=== PATIENT | female | born 1995 | race Caucasian/White ===

== ENCOUNTER 2018-06-30 13:04 | Emergency (ER) | payer SELFPAY ==
[~2018-06-30] VITALS: Ht 152.4 cm; Wt 49.0 kg
[2018-06-30 13:19] VITALS: BP 118/82
== END 2018-06-30 20:20 | disposition left against medical advice (07) ==
LOC: ER 13:04
DX: Z53.21 Procedure and treatment not carried out due to patient leaving prior to being seen by health care provider (principal)

== ENCOUNTER 2018-09-02 01:22 | Emergency (ER) | payer SELFPAY ==
[~2018-09-02] VITALS: Ht 154.9 cm; Wt 50.9 kg
[2018-09-02] MEDS ORDERED: SODIUM CHLORIDE 0.9% 1,000 ML IV ONE (01:44)
[2018-09-02] MEDS ORDERED: KETOROLAC 30MG/ML VIAL IV STA (01:44)
[2018-09-02] MEDS ORDERED: ONDANSETRON HCL 4MG/2ML INJ IV STA (01:44)
[2018-09-02] MEDS ORDERED: CLINDAMYCIN 600 MG in DEXTROSE 5% WATER 50 ML IV ONE (01:45)
[2018-09-02] MEDS ORDERED: DEXAMETHASONE 10 MG/ML VIAL IV ONE (01:45)
[2018-09-02] MEDS ORDERED: CLINDAMYCIN 600 MG in SODIUM CHLORIDE 0.9% 50 ML IV NR (02:15)
[2018-09-02 02:16] LABS: HEMATOCRIT. 37.2 % (36.0-48.0); HEMOGLOBIN. 12.8 g/dL (12.0-16.0); MEAN CORPUSCULAR HEMOGLOBIN 30.6 pg (28.0-32.0); MEAN PLATELET VOLUME 6.9 fl (7.4-10.4); PLATELET 356 x1000/uL (130-400); RED BLOOD CELL COUNT 4.18 mill/uL (4.2-5.4); RED CELL DISTRIBUTION WIDTH 14.8 % (11.6-14.6)
[2018-09-02 02:22] LABS: CHLORIDE 107 mEq/L (98-107)
[2018-09-02 02:23] LABS: HCG SCREEN NEGATIVE
[2018-09-02] MEDS ORDERED: LIDOCAINE HCL/PF 1% 10 MG/ML 5ML VIAL IJ ONE (03:00)
[2018-09-02] MEDS ORDERED: TETRACAINE/BENZOCAINE/BUTAMBEN 20 GM SPRAY MM NR (03:00)
[2018-09-02 03:41] VITALS: BP 103/78
[2018-09-02 05:07] LABS: PLATELET ESTIMATE NORMAL
== END 2018-09-02 03:44 | disposition home or self-care (01) ==
LOC: ER 01:22
DX: J36 Peritonsillar abscess (principal); D72.829 Elevated white blood cell count, unspecified
CPT/HCPCS: 36415; 42700; 80053; 84703; 85025; 96365; 96375; 99283; J1100; J1885; J2405; J3490; J7030; J7060

== ENCOUNTER 2019-05-06 12:10 | Emergency (ER) | payer SELFPAY | END 2019-05-06 13:59 | disposition left against medical advice (07) | LOC: ER 12:10 | DX: Z53.21 Procedure and treatment not carried out due to patient leaving prior to being seen by health care provider (principal) ==

== ENCOUNTER 2019-05-06 21:23 | Emergency (ER) | payer SELFPAY ==
[~2019-05-06] VITALS: Ht 152.4 cm; Wt 54.0 kg
[2019-05-06] MEDS ORDERED: CLINDAMYCIN 600 MG in DEXTROSE 5% WATER 50 ML IV ONE (22:30)
[2019-05-06] MEDS ORDERED: HYDROCODONE/ACETAMINOPHEN 5/325MG TABLET PO ONE (22:30)
[2019-05-06] MEDS ORDERED: DIPHENHYDRAMINE 50MG/ML VIAL IV ONE (22:45)
[2019-05-06 23:00] LABS: BASOPHILS % 0.4 % (0.0-2.0); EOSINOPHILS % 0.9 % (0.0-5.0); HEMATOCRIT. 38.5 % (36.0-48.0); HEMOGLOBIN. 13.3 g/dL (12.0-16.0); LYMPHOCYTES % 11.3 % (20.0-50.0); MEAN CORPUSCULAR HEMOGLOBIN 31.3 pg (28.0-32.0); MEAN CORPUSCULAR VOLUME 90.7 fL (81.0-99.0); MEAN PLATELET VOLUME 6.8 fl (7.4-10.4); MONOCYTES % 5.6 % (2.0-8.0); NEUTROPHILS % 81.8 % (40.0-76.0); PLATELET 386 x1000/uL (130-400); RED BLOOD CELL COUNT 4.25 mill/uL (4.2-5.4)
[2019-05-06 23:07] LABS: CHLORIDE 105 mEq/L (98-107)
[2019-05-06] MEDS ORDERED: SODIUM CHLORIDE 0.9% 1,000 ML IV ONE (23:42)
[2019-05-07] MEDS ORDERED: CLINDAMYCIN 600MG PREMIX 50 ML IV SCH
[2019-05-07] MEDS ORDERED: KETOROLAC 15MG/ML VIAL IV ONE (00:30)
[2019-05-07 00:55] VITALS: BP 99/66
== END 2019-05-07 01:26 | disposition left against medical advice (07) ==
LOC: ER 21:23 → CANBEDREQ 05-07 02:10
DX: L03.115 Cellulitis of right lower limb (principal); M25.562 Pain in left knee
CPT/HCPCS: 36415; 73562; 80053; 85025; 87040; 93971; 96365; 96375; 99284; J1200; J1885; J3490; J7030; Z7610; J7060

== ENCOUNTER 2022-07-08 15:44 | Emergency (ER) | payer SELFPAY ==
[~2022-07-08] VITALS: Ht 154.9 cm; Wt 64.0 kg
[2022-07-08 15:56] VITALS: BP 115/77
== END 2022-07-08 20:21 | disposition left against medical advice (07) ==
LOC: ER 15:44
DX: Z53.21 Procedure and treatment not carried out due to patient leaving prior to being seen by health care provider (principal)

== ENCOUNTER 2024-11-12 04:57 | Emergency (ER) | payer SELFPAY ==
[~2024-11-12] VITALS: Ht 157.5 cm; Wt 67.0 kg
[2024-11-12 05:07] VITALS: O2SAT 100
[2024-11-12 06:35] VITALS: BP 104/57; PULSE 61; RESP 13; TEMP 36.8; O2SAT 97
== END 2024-11-12 05:50 | disposition left against medical advice (07) ==
LOC: ER 04:57
DX: S01.81XA Laceration without foreign body of other part of head, initial encounter (principal); Z53.21 Procedure and treatment not carried out due to patient leaving prior to being seen by health care provider; W22.8XXA Striking against or struck by other objects, initial encounter; Y93.89 Activity, other specified; Y92.89 Other specified places as the place of occurrence of the external cause; Y99.8 Other external cause status